=== PATIENT | male | born 1945 | race Caucasian/White ===

== ENCOUNTER 2016-04-08 09:56 | Inpatient (IN) | payer MEDICARE, OTHER ==
[2016-04-08] VITALS (34 sets, daily range): BP systolic 94–155; BP diastolic 30–98
[~2016-04-08] VITALS: Ht 185.4 cm; Wt 72.6 kg
[2016-04-08 10:37] LABS: Basophils # (auto) 0 uL; Basophils % (auto) 0.4 % (0.0-2.0); Eosinophils # (auto) 0.3 uL; Eosinophils % (auto) 5.4 % (0.0-7.0); Hematocrit 26.6 % (41.0-53.0); Hemoglobin 8.7 g/dL (13.5-17.5); Lymphocytes # (auto) 1.3 uL; Lymphocytes % (auto) 21.8 % (10.0-50.0); Mean Corpuscular Hemoglobin 31.3 pg (28.0-32.0); Mean Corpuscular Hgb Conc. 32.7 g/dL (32.0-36.0); Mean Corpuscular Volume 95.6 fL (80.0-100.0); Mean Platelet Volume 8.3 fL (7.4-10.4); Monocytes # (auto) 0.7 uL; Monocytes % (auto) 11.9 % (0.0-12.0); Neutrophils # (auto) 3.5 uL; Neutrophils % (auto) 60.5 % (37.0-80.0); Platelet Count (auto) 202 10^3/uL (140-450); Red Cell Distribution Width 14.4 % (11.6-16.0); White Blood Cell 5.8 10^3/uL (4.4-10.8)
[2016-04-08] MEDS ORDERED: FERROUS SULFATE 300 MG/5 ML ORAL LIQ PO ONE (10:45)
[2016-04-08] MEDS ORDERED: SODIUM CHLORIDE 0.9% 2,000 ML IV ONE (10:45)
[2016-04-08 10:58] LABS: Albumin 3.4 g/dL (3.4-5.0); BUN/Creatinine Ratio 5.1; Bilirubin, Total 0.6 mg/dL (0.2-1.0); Calcium 8.4 mg/dL (8.5-10.1); Potassium 5.2 mmol/L (3.5-5.1); Total Protein 6.7 g/dL (6.4-8.2)
[2016-04-08] MEDS: PROPOFOL 100 ML IV SCH (11:10)
[2016-04-08] MEDS ORDERED: PHENYLEPHRINE HCL 10 MG/ML VL IV ONE (11:16)
[2016-04-08] MEDS ORDERED: ceFAZolin 1GM/50ML D5W 50 ML IV ONE (11:16)
[2016-04-08] MEDS ORDERED: HEPARIN SODIUM (PORCINE) 5000 UNITS/ML 1ML VIAL ONE (11:20)
[2016-04-08] MEDS ORDERED: MIDAZOLAM HCL 1MG/1ML-2 ML VIAL ONE ×2 (11:21→11:57)
[2016-04-08] MEDS ORDERED: fentaNYL CITRATE 100 MCG/2 ML VL ONE ×2 (11:21→11:57)
[2016-04-08] MEDS ORDERED: fentaNYL CITRATE 5 ML ONE (11:21)
[2016-04-08] MEDS ORDERED: ETOMIDATE (2MG/ML) 20ML VIAL IV ONE (11:23)
[2016-04-08 11:26] LABS: Partial Thromboplastin Time 26.7 sec (22.64-33.71)
[2016-04-08 11:27] LABS: INR 1.28 (0.9-1.15); Prothrombin Time 13.2 sec (9.37-12.3)
[2016-04-08] MEDS ORDERED: ROCURONIUM 10MG/ML 10ML VIAL IV ONE (11:34)
[2016-04-08] MEDS ORDERED: MEPERIDINE HCL (50 MG/ML) 1 ML VIAL ONE (11:39)
[2016-04-08] MEDS ORDERED: DEXAMETHASONE SOD PHOS 10MG/1ML VIAL INJ ONE (11:46)
[2016-04-08] MEDS ORDERED: ONDANSETRON HCL 4 MG/2 ML VIAL IV ONE (12:30)
[2016-04-08] MEDS ORDERED: MORPHINE SULF INJ 2 MG/ML SYRINGE 1ML IV PRN ×3 (12:30→12:45)
[2016-04-08] MEDS ORDERED: LABETALOL HCL 5 MG/ML 4ML SYRINGE IV PRN (12:30)
[2016-04-08] MEDS ORDERED: HYDROmorphone HCL 2 MG/ML VL IV PRN (12:30)
[2016-04-08] MEDS ORDERED: ACCU-CHEK COMFORT CURVE STRIP VI ONE (12:30)
[2016-04-08] MEDS ORDERED: ePHEDrine SULFATE 50 MG/ML AMP IV PRN (12:30)
[2016-04-08] MEDS ORDERED: DEXTROSE (50%) 50ML SYRG IV ONE ×2 (12:45→15:15)
[2016-04-08] MEDS ORDERED: InsuLIN REG 1unit/0.01ml Soln (100units/ml) IV ONE ×2 (12:45→15:15)
[2016-04-08] MEDS ORDERED: NITROGLYCERIN 0.4 MG SL TAB SL PRN ×2 (12:45)
[2016-04-08] MEDS: MIDAZOLAM HCL 1MG/1ML-2 ML VIAL IV PRN ×2 (12:46→12:56)
[2016-04-08] MEDS ORDERED: EPOETIN ALFA 10,000 UNIT/1 ML VIAL SC ONE (13:00)
[2016-04-08] MEDS: MIDAZOLAM DRIP 100 mg/100mL NS 100 ML IV SCH (13:13)
[2016-04-08 13:58] LABS: Calcium 7.5 mg/dL (8.5-10.1)
[2016-04-08 14:07] LABS: Potassium 5.7 mmol/L (3.5-5.1)
[2016-04-08] MEDS ORDERED: SODIUM POLYSTYRENE SULF 15GM/60ML SUSP PR ONE (14:15)
[2016-04-08] MEDS ORDERED: SODIUM FERR GLUC 62.5MG/5ML 125 MG in SODIUM CHL 0.9% 100 ML IV ONE (14:15)
[2016-04-08] MEDS ORDERED: METOPROLOL TARTRATE 1MG/1ML-5ML VIAL IV PRN (14:15)
[2016-04-08] MEDS: SODIUM CHLOR 0.9% PF (SALINE LOCK) 10ML VIAL IV SCH ×2 (14:35→22:00)
[2016-04-08] MEDS ORDERED: ALBUTEROL SULF 2.5 MG/0.5ML(0.5%) NEB SOLN NEB ONE (15:15)
[2016-04-08] MEDS ORDERED: SODIUM BICARBONATE 50ML VIAL 50 ML in SOD CHL 0.45% 1,000 ML IV SCH (15:15)
[2016-04-08] MEDS: FAMOTIDINE (10MG/ML) 2ML VL IV SCH (15:20)
[2016-04-08] MEDS ORDERED: DEXTROSE 50% SYRINGE 50 ML IV ONE (15:21)
[2016-04-08] MEDS ORDERED: PROPOFOL 100 ML IV ONE (16:27)
[2016-04-08 18:42] LABS: BUN/Creatinine Ratio 5.4; Calcium 8.2 mg/dL (8.5-10.1); Potassium 4.6 mmol/L (3.5-5.1)
[2016-04-09] VITALS (104 sets, daily range): BP systolic 83–145; BP diastolic 31–109
[2016-04-09 04:02] LABS: Basophils # (auto) 0 uL; Basophils % (auto) 0.1 % (0.0-2.0); DEFINITIVE VIEW TRANSMISSION; Eosinophils # (auto) 0 uL; Eosinophils % (auto) 0.1 % (0.0-7.0); Hematocrit 17.5 % (41.0-53.0); Lymphocytes # (auto) 0.5 uL; Lymphocytes % (auto) 8.2 % (10.0-50.0); Mean Corpuscular Hemoglobin 31.4 pg (28.0-32.0); Mean Corpuscular Hgb Conc. 32.8 g/dL (32.0-36.0); Mean Corpuscular Volume 95.7 fL (80.0-100.0); Mean Platelet Volume 8.5 fL (7.4-10.4); Monocytes # (auto) 0.2 uL; Neutrophils # (auto) 5.3 uL; Neutrophils % (auto) 87.6 % (37.0-80.0); Platelet Count (auto) 135 10^3/uL (140-450); Red Cell Distribution Width 14.6 % (11.6-16.0)
[2016-04-09 04:05] LABS: Hemoglobin 5.8 g/dL (13.5-17.5)
[2016-04-09 04:17] LABS: Potassium 4.9 mmol/L (3.5-5.1)
[2016-04-09] MEDS: SODIUM CHLOR 0.9% PF (SALINE LOCK) 10ML VIAL IV SCH ×3 (06:03→21:33)
[2016-04-09 06:40] LABS: Basophils # (auto) 0 uL; Basophils % (auto) 0.2 % (0.0-2.0); DEFINITIVE VIEW TRANSMISSION; Eosinophils # (auto) 0 uL; Hematocrit 17.8 % (41.0-53.0); Lymphocytes # (auto) 0.6 uL; Mean Corpuscular Hemoglobin 31.8 pg (28.0-32.0); Mean Corpuscular Hgb Conc. 32.7 g/dL (32.0-36.0); Mean Corpuscular Volume 97.2 fL (80.0-100.0); Mean Platelet Volume 8.5 fL (7.4-10.4); Monocytes # (auto) 0.4 uL; Monocytes % (auto) 5.8 % (0.0-12.0); Neutrophils # (auto) 5.5 uL; Platelet Count (auto) 132 10^3/uL (140-450); Red Cell Distribution Width 14.6 % (11.6-16.0); White Blood Cell 6.5 10^3/uL (4.4-10.8)
[2016-04-09 06:44] LABS: Hemoglobin 5.8 g/dL (13.5-17.5)
[2016-04-09] MEDS ORDERED: SODIUM CHL 0.9% 1000 ML BAG XX ONE (08:00)
[2016-04-09] MEDS ORDERED: EPOETIN ALFA 10,000 UNIT/1 ML VIAL IV ONE (08:00)
[2016-04-09 09:46] LABS: INR 1.26 (0.9-1.15)
[2016-04-09] MEDS: MIDAZOLAM DRIP 100 mg/100mL NS 100 ML IV SCH ×2 (11:13→19:37)
[2016-04-09] MEDS: FAMOTIDINE (10MG/ML) 2ML VL IV SCH (11:13)
[2016-04-09] MEDS ORDERED: NOREPINEPHRINE BITARTRATE 250 ML IV SCH (11:29)
[2016-04-09] MEDS ORDERED: Novasource Renal 1 Liter GT SCH ×2 (12:00)
[2016-04-09] MEDS: SODIUM FERR GLUC 62.5MG/5ML 125 MG in SODIUM CHL 0.9% 100 ML IV SCH (12:22)
[2016-04-09] MEDS ORDERED: fentaNYL Drip 2500mCg/250mlNS 250 ML IV ONE (14:12)
[2016-04-09] MEDS ORDERED: fentaNYL Drip 2500mCg/250mlNS 250 ML IV SCH (14:12)
[2016-04-09] MEDS: PROPOFOL 100 ML IV SCH (16:40)
[2016-04-09] MEDS ORDERED: ACET-1158 PO (17:04)
[2016-04-09] MEDS ORDERED: ATO40T PO (17:04)
[2016-04-09] MEDS ORDERED: ATOR40TA52 PO (17:04)
[2016-04-09] MEDS ORDERED: GLIP2.5T28 PO (17:04)
[2016-04-09] MEDS ORDERED: MIRT30TA PO (17:04)
[2016-04-09] MEDS ORDERED: CALC667C PO (17:04)
[2016-04-09] MEDS ORDERED: SEVE800T8 PO (17:04)
[2016-04-09] MEDS ORDERED: DILT240C PO (17:04)
[2016-04-09] MEDS ORDERED: OMEP20CA5 PO (17:04)
[2016-04-09] MEDS ORDERED: HYDR-531 PO (17:04)
[2016-04-09] MEDS ORDERED: MINO2.5T2 PO (17:04)
[2016-04-09] MEDS ORDERED: FENT100D11 TD (19:42)
[2016-04-09] MEDS ORDERED: SODIUM BICARBONATE 50ML VIAL 50 ML in SOD CHL 0.45% 1,000 ML IV SCH (23:00)
[2016-04-10] VITALS (98 sets, daily range): BP systolic 107–199; BP diastolic 30–134
[2016-04-10] MEDS: PANTOPRAZOLE SODIUM 40 MG/10 ML VIAL IV SCH (00:30)
[2016-04-10] MEDS: MIDAZOLAM DRIP 100 mg/100mL NS 100 ML IV SCH ×2 (02:52→10:28)
[2016-04-10 04:12] LABS: BUN/Creatinine Ratio 6.6; Calcium 7.3 mg/dL (8.5-10.1); Potassium 4.5 mmol/L (3.5-5.1)
[2016-04-10 04:40] LABS: Basophils # (auto) 0 uL; Basophils % (auto) 0.3 % (0.0-2.0); DEFINITIVE VIEW TRANSMISSION; Eosinophils # (auto) 0 uL; Eosinophils % (auto) 0.4 % (0.0-7.0); Hematocrit 17.5 % (41.0-53.0); Lymphocytes % (auto) 12.7 % (10.0-50.0); Mean Corpuscular Hemoglobin 32.1 pg (28.0-32.0); Mean Corpuscular Hgb Conc. 34.1 g/dL (32.0-36.0); Mean Corpuscular Volume 94.1 fL (80.0-100.0); Mean Platelet Volume 8.9 fL (7.4-10.4); Monocytes # (auto) 0.7 uL; Monocytes % (auto) 8.8 % (0.0-12.0); Neutrophils # (auto) 6.3 uL; Neutrophils % (auto) 77.8 % (37.0-80.0); Platelet Count (auto) 144 10^3/uL (140-450); Red Cell Distribution Width 15.2 % (11.6-16.0); White Blood Cell 8.2 10^3/uL (4.4-10.8)
[2016-04-10] MEDS: SODIUM CHLOR 0.9% PF (SALINE LOCK) 10ML VIAL IV SCH ×3 (06:48→22:00)
[2016-04-10] MEDS: SODIUM FERR GLUC 62.5MG/5ML 125 MG in SODIUM CHL 0.9% 100 ML IV SCH (10:00)
[2016-04-10] MEDS: FAMOTIDINE (10MG/ML) 2ML VL IV SCH (10:26)
[2016-04-10] MEDS ORDERED: METOPROLOL TARTRATE 1MG/1ML-5ML VIAL IV PRN (12:00)
[2016-04-10] MEDS ORDERED: NITROGLYCERIN 0.4 MG SL TAB SL PRN (12:00)
[2016-04-10] MEDS ORDERED: MIDAZOLAM DRIP 100 mg/100mL NS 100 ML IV SCH (12:41)
[2016-04-10] MEDS ORDERED: fentaNYL Drip 2500mCg/250mlNS 250 ML IV SCH (14:12)
[2016-04-10] MEDS ORDERED: fentaNYL 50MCG/HR 50 MCG/HR PAT TD SCH (15:30)
[2016-04-10] MEDS ORDERED: PROPOFOL 100 ML IV SCH (16:40)
[2016-04-10] MEDS ORDERED: DEXTROSE (50%) 50ML SYRG IV PRN (17:45)
[2016-04-10] MEDS: InsuLIN REG 1unit/0.01ml Soln (100units/ml) SC SCH (18:00)
[2016-04-10] MEDS ORDERED: InsuLIN REG 1unit/0.01ml Soln (100units/ml) SC SCH (18:00)
[2016-04-10] MEDS ORDERED: ACCU-CHEK COMFORT CURVE STRIP VI SCH (18:00)
[2016-04-10] MEDS: ACCU-CHEK COMFORT CURVE STRIP VI SCH (18:00)
[2016-04-10] MEDS: MORPHINE SULF INJ 2 MG/ML SYRINGE 1ML IV PRN (18:03)
[2016-04-10] MEDS ORDERED: HYDROmorphone HCL 2 MG/ML VL ONE (19:25)
[2016-04-10] MEDS ORDERED: HYDROmorphone HCL 2 MG/ML VL IV ONE (19:40)
[2016-04-10] MEDS ORDERED: SODIUM BICARBONATE 50ML VIAL 50 ML in SOD CHL 0.45% 1,000 ML IV SCH (23:00)
[2016-04-11] VITALS (81 sets, daily range): BP systolic 118–186; BP diastolic 57–117
[2016-04-11] MEDS: MORPHINE SULF INJ 2 MG/ML SYRINGE 1ML IV PRN (01:18)
[2016-04-11] MEDS: HALOPERIDOL LACTATE 5 MG/ML INJ VIAL IV PRN (01:22)
[2016-04-11 04:07] LABS: Basophils # (auto) 0 uL; Basophils % (auto) 0.2 % (0.0-2.0); DEFINITIVE VIEW TRANSMISSION; Eosinophils # (auto) 0 uL; Eosinophils % (auto) 0.5 % (0.0-7.0); Hematocrit 17.5 % (41.0-53.0); Lymphocytes % (auto) 10.8 % (10.0-50.0); Mean Corpuscular Hemoglobin 32.2 pg (28.0-32.0); Mean Corpuscular Hgb Conc. 33.7 g/dL (32.0-36.0); Mean Corpuscular Volume 95.7 fL (80.0-100.0); Mean Platelet Volume 8.3 fL (7.4-10.4); Monocytes # (auto) 0.8 uL; Monocytes % (auto) 8.4 % (0.0-12.0); Neutrophils # (auto) 7.4 uL; Neutrophils % (auto) 80.1 % (37.0-80.0); Platelet Count (auto) 151 10^3/uL (140-450); Red Cell Distribution Width 14.7 % (11.6-16.0); White Blood Cell 9.2 10^3/uL (4.4-10.8)
[2016-04-11 04:08] LABS: BUN/Creatinine Ratio 7.2; Calcium 7.7 mg/dL (8.5-10.1); Potassium 3.7 mmol/L (3.5-5.1)
[2016-04-11 04:21] LABS: Hemoglobin 5.9 g/dL (13.5-17.5)
[2016-04-11] MEDS: InsuLIN REG 1unit/0.01ml Soln (100units/ml) SC SCH ×4 (06:00→18:43)
[2016-04-11] MEDS: ACCU-CHEK COMFORT CURVE STRIP VI SCH ×4 (06:00→18:01)
[2016-04-11] MEDS ORDERED: SODIUM CHL 0.9% 1000 ML BAG XX ONE (08:00)
[2016-04-11] MEDS ORDERED: DILTIAZEM HCL 60 MG TAB GT ONE (10:00)
[2016-04-11] MEDS: SODIUM CHLOR 0.9% PF (SALINE LOCK) 10ML VIAL IV SCH ×3 (10:04→21:08)
[2016-04-11] MEDS: MINOXIDIL 2.5 MG TAB PO SCH (10:05)
[2016-04-11] MEDS: PANTOPRAZOLE SODIUM 40 MG/10 ML VIAL IV SCH ×2 (10:05→21:08)
[2016-04-11] MEDS: FAMOTIDINE (10MG/ML) 2ML VL IV SCH (10:05)
[2016-04-11] MEDS: LORazepam 2MG/ML-1ML VIAL IV PRN ×2 (10:06→20:18)
[2016-04-11] MEDS ORDERED: NOREPINEPHRINE BITARTRATE 250 ML IV SCH (11:29)
[2016-04-11] MEDS: SODIUM FERR GLUC 62.5MG/5ML 125 MG in SODIUM CHL 0.9% 100 ML IV SCH (11:39)
[2016-04-11] MEDS ORDERED: ALBUTEROL SULF 2.5 MG/0.5ML(0.5%) NEB SOLN NEB PRN (13:30)
[2016-04-11] MEDS ORDERED: IPRATROPIUM BROM 0.5 MG/2.5ML INH SOL NEB PRN (13:30)
[2016-04-11] MEDS ORDERED: BUDESONIDE (INHALATION) 0.5 MG/2 ML NEB NEB ONE (13:30)
[2016-04-11] MEDS ORDERED: ALBUTEROL SULF 2.5 MG/0.5ML(0.5%) NEB SOLN NEB ONE (13:30)
[2016-04-11] MEDS ORDERED: IPRATROPIUM BROM 0.5 MG/2.5ML INH SOL NEB ONE (13:30)
[2016-04-11] MEDS ORDERED: FUROSEMIDE 40 MG/4 ML VIAL ONE (14:52)
[2016-04-11] MEDS ORDERED: FUROSEMIDE 40 MG/4 ML VIAL IV ONE (15:00)
[2016-04-11] MEDS ORDERED: METOPROLOL TARTRATE 1MG/1ML-5ML VIAL IV ONE ×2 (15:45→15:53)
[2016-04-11] MEDS ORDERED: LABETALOL HCL 5 MG/ML 4ML SYRINGE IV ONE ×2 (17:45→17:47)
[2016-04-11] MEDS: DILTIAZEM HCL 60 MG TAB GT SCH (18:06)
[2016-04-11] MEDS: FUROSEMIDE 40 MG/4 ML VIAL IV SCH (19:27)
[2016-04-11] MEDS ORDERED: MIRTAZAPINE 30 MG TAB PO SCH (22:00)
[2016-04-12] VITALS (33 sets, daily range): BP systolic 124–184; BP diastolic 59–112
[2016-04-12] MEDS: HYDROmorphone HCL 2 MG/ML VL IV PRN ×2 (01:15→23:28)
[2016-04-12] MEDS: DILTIAZEM HCL 60 MG TAB GT SCH ×2 (05:05)
[2016-04-12] MEDS: SODIUM CHLOR 0.9% PF (SALINE LOCK) 10ML VIAL IV SCH ×3 (05:05→22:33)
[2016-04-12] MEDS: FUROSEMIDE 40 MG/4 ML VIAL IV SCH ×2 (05:05→18:25)
[2016-04-12] MEDS: InsuLIN REG 1unit/0.01ml Soln (100units/ml) SC SCH ×4 (05:06→18:00)
[2016-04-12] MEDS: ACCU-CHEK COMFORT CURVE STRIP VI SCH ×4 (05:13→18:25)
[2016-04-12] MEDS: LORazepam 2MG/ML-1ML VIAL IV PRN (10:46)
[2016-04-12] MEDS: SODIUM FERR GLUC 62.5MG/5ML 125 MG in SODIUM CHL 0.9% 100 ML IV SCH (11:28)
[2016-04-12] MEDS: MINOXIDIL 2.5 MG TAB PO SCH (11:30)
[2016-04-12] MEDS: PANTOPRAZOLE SODIUM 40 MG/10 ML VIAL IV SCH ×2 (11:30→22:00)
[2016-04-12] MEDS: FAMOTIDINE (10MG/ML) 2ML VL IV SCH (11:30)
[2016-04-12 12:02] LABS: BUN/Creatinine Ratio 7.1; Calcium 8.4 mg/dL (8.5-10.1); Potassium 3.6 mmol/L (3.5-5.1)
[2016-04-12] MEDS ORDERED: PHYTONADIONE (VIT K)10 MG/ML 1ML VIAL SUBCUT ONE (18:15)
[2016-04-12] MEDS: LABETALOL HCL 5 MG/ML 4ML SYRINGE IV PRN (20:27)
[2016-04-12] MEDS: HALOPERIDOL LACTATE 5 MG/ML INJ VIAL IV PRN (22:00)
[2016-04-13] VITALS (8 sets, daily range): BP systolic 112–176; BP diastolic 53–114
[2016-04-13] MEDS: LORazepam 2MG/ML-1ML VIAL IV PRN ×2 (00:52→12:39)
[2016-04-13] MEDS: ACCU-CHEK COMFORT CURVE STRIP VI SCH ×5 (01:23→23:58)
[2016-04-13] MEDS: SODIUM CHLOR 0.9% PF (SALINE LOCK) 10ML VIAL IV SCH ×3 (05:44→21:39)
[2016-04-13] MEDS: InsuLIN REG 1unit/0.01ml Soln (100units/ml) SC SCH ×4 (05:44→18:00)
[2016-04-13 06:15] LABS: Basophils # (auto) 0 uL; Basophils % (auto) 0.2 % (0.0-2.0); DEFINITIVE VIEW TRANSMISSION; Eosinophils # (auto) 0.1 uL; Eosinophils % (auto) 0.8 % (0.0-7.0); Hematocrit 20.9 % (41.0-53.0); Lymphocytes # (auto) 0.8 uL; Lymphocytes % (auto) 8.3 % (10.0-50.0); Mean Corpuscular Hemoglobin 31.4 pg (28.0-32.0); Mean Corpuscular Hgb Conc. 32.3 g/dL (32.0-36.0); Mean Corpuscular Volume 97.2 fL (80.0-100.0); Mean Platelet Volume 8.5 fL (7.4-10.4); Monocytes # (auto) 0.7 uL; Monocytes % (auto) 7.3 % (0.0-12.0); Neutrophils # (auto) 7.8 uL; Neutrophils % (auto) 83.4 % (37.0-80.0); Platelet Count (auto) 197 10^3/uL (140-450); Red Cell Distribution Width 15.2 % (11.6-16.0); White Blood Cell 9.3 10^3/uL (4.4-10.8)
[2016-04-13] MEDS: FUROSEMIDE 40 MG/4 ML VIAL IV SCH (06:17)
[2016-04-13 06:23] LABS: Hemoglobin 6.8 g/dL (13.5-17.5)
[2016-04-13 06:56] LABS: Albumin 3.3 g/dL (3.4-5.0); BUN/Creatinine Ratio 7.9; Bilirubin, Total 0.6 mg/dL (0.2-1.0); Calcium 8.7 mg/dL (8.5-10.1); Phosphorus 8.2 mg/dL (2.6-4.90); Potassium 4.1 mmol/L (3.5-5.1); Total Protein 6.4 g/dL (6.4-8.2)
[2016-04-13] MEDS ORDERED: cloNIDine 0.2 MG/24 HR PAT TD SCH (08:15)
[2016-04-13] MEDS ORDERED: DILTIAZEM HCL 25 MG/5 ML VIAL IV ONE (08:15)
[2016-04-13] MEDS ORDERED: PPN PER PHARMACY 0 ML IV SCH (08:15)
[2016-04-13 09:16] LABS: Magnesium 2.8 mg/dL (1.6-2.6)
[2016-04-13] MEDS: SOD CHL 0.45% 1,000 ML IV SCH (09:37)
[2016-04-13] MEDS: PHYTONADIONE (VIT K)10 MG/ML 1ML VIAL SUBCUT SCH (09:39)
[2016-04-13] MEDS: FAMOTIDINE (10MG/ML) 2ML VL IV SCH (09:39)
[2016-04-13] MEDS: PANTOPRAZOLE SODIUM 40 MG/10 ML VIAL IV SCH ×2 (09:39→21:37)
[2016-04-13] MEDS ORDERED: SODIUM CHL 0.9% 1000 ML BAG XX ONE (10:30)
[2016-04-13] MEDS ORDERED: EPOETIN ALFA 10,000 UNIT/1 ML VIAL IV ONE (10:30)
[2016-04-13] MEDS: SODIUM FERR GLUC 62.5MG/5ML 125 MG in SODIUM CHL 0.9% 100 ML IV SCH (11:30)
[2016-04-13] MEDS: LABETALOL HCL 5 MG/ML 4ML SYRINGE IV PRN ×2 (15:58→21:36)
[2016-04-13] MEDS: HYDROmorphone HCL 2 MG/ML VL IV PRN (17:10)
[2016-04-13] MEDS ORDERED: PPN PER PHARMACY IV NR ×7 (20:00)
[2016-04-14] MEDS: HYDROmorphone HCL 2 MG/ML VL IV PRN ×2 (00:17→10:06)
[2016-04-14] MEDS: LORazepam 2MG/ML-1ML VIAL IV PRN (02:14)
[2016-04-14] MEDS: ACCU-CHEK COMFORT CURVE STRIP VI SCH ×3 (05:25→18:08)
[2016-04-14] MEDS: SODIUM CHLOR 0.9% PF (SALINE LOCK) 10ML VIAL IV SCH ×3 (05:25→22:09)
[2016-04-14 05:27] LABS: Basophils # (auto) 0 uL; DEFINITIVE VIEW TRANSMISSION; Eosinophils # (auto) 0 uL; Lymphocytes # (auto) 1.1 uL; Monocytes # (auto) 1.1 uL; Monocytes % (auto) 10.2 % (0.0-12.0); Red Cell Distribution Width 15.6 % (11.6-16.0)
[2016-04-14] MEDS: InsuLIN REG 1unit/0.01ml Soln (100units/ml) SC SCH ×4 (05:31→18:09)
[2016-04-14 05:35] LABS: Albumin 3.3 g/dL (3.4-5.0); Calcium 8.9 mg/dL (8.5-10.1); Magnesium 2.9 mg/dL (1.6-2.6); Potassium 4.3 mmol/L (3.5-5.1)
[2016-04-14 05:37] LABS: Basophils % (auto) 0.1 % (0.0-2.0); Eosinophils % (auto) 0.3 % (0.0-7.0); Lymphocytes % (auto) 10.7 % (10.0-50.0); Mean Corpuscular Hgb Conc. 32.9 g/dL (32.0-36.0); Mean Corpuscular Volume 97.3 fL (80.0-100.0); Mean Platelet Volume 8.6 fL (7.4-10.4); Neutrophils # (auto) 8.2 uL; Neutrophils % (auto) 78.7 % (37.0-80.0); Platelet Count (auto) 231 10^3/uL (140-450); White Blood Cell 10.4 10^3/uL (4.4-10.8)
[2016-04-14 05:40] LABS: Hemoglobin 6.9 g/dL (13.5-17.5)
[2016-04-14 05:44] LABS: Bilirubin, Total 0.6 mg/dL (0.2-1.0); Total Protein 6.6 g/dL (6.4-8.2)
[2016-04-14] MEDS: SOD CHL 0.45% 1,000 ML IV SCH (06:00)
[2016-04-14 06:09] LABS: Phosphorus 7.9 mg/dL (2.6-4.90)
[2016-04-14 08:00] VITALS: BP 154/93
[2016-04-14] MEDS: TPN PER PHARMACY 0 ML IV SCH (09:00)
[2016-04-14] MEDS: PHYTONADIONE (VIT K)10 MG/ML 1ML VIAL SUBCUT SCH (09:41)
[2016-04-14] MEDS: PANTOPRAZOLE SODIUM 40 MG/10 ML VIAL IV SCH ×2 (09:41→22:09)
[2016-04-14 12:00] VITALS: BP 162/105
[2016-04-14] MEDS ORDERED: EPOETIN ALFA 10,000 UNIT/1 ML VIAL IV ONE (12:45)
[2016-04-14] MEDS: FAMOTIDINE (10MG/ML) 2ML VL IV SCH (15:11)
[2016-04-14] MEDS: SODIUM FERR GLUC 62.5MG/5ML 125 MG in SODIUM CHL 0.9% 100 ML IV SCH (15:24)
[2016-04-14 16:00] VITALS: BP 155/101
[2016-04-14 18:16] VITALS: BP 155/101
[2016-04-14 19:42] LABS: Cholesterol 152 mg/dL (<200); HDL Cholesterol 47 mg/dL (40-59); LDL Cholesterol 89 mg/dL (<100); Triglycerides 130 mg/dL (<150)
[2016-04-14 19:57] LABS: Vitamin B12 1456 pg/mL (211-911)
[2016-04-14 20:00] VITALS: BP 146/90
[2016-04-14] MEDS ORDERED: TPN PER PHARMACY IV NR ×8 (20:00)
[2016-04-14 20:35] LABS: Temperature: 21.9 C (20.0-25.0)
[2016-04-14] MEDS: ATORVASTATIN 20 MG TAB PO SCH (22:00)
[2016-04-15] VITALS: BP 136/78
[2016-04-15] MEDS: ACCU-CHEK COMFORT CURVE STRIP VI SCH ×5 (00:01→23:51)
[2016-04-15] MEDS: InsuLIN REG 1unit/0.01ml Soln (100units/ml) SC SCH ×4 (00:15→17:55)
[2016-04-15] MEDS: SOD CHL 0.45% 1,000 ML IV SCH (00:34)
[2016-04-15 04:00] VITALS: BP 158/72
[2016-04-15 05:41] LABS: Basophils # (auto) 0 uL; Basophils % (auto) 0.2 % (0.0-2.0); DEFINITIVE VIEW TRANSMISSION; Eosinophils # (auto) 0.3 uL; Eosinophils % (auto) 2.9 % (0.0-7.0); Hemoglobin 7.4 g/dL (13.5-17.5); Lymphocytes # (auto) 1.4 uL; Lymphocytes % (auto) 12.9 % (10.0-50.0); Mean Corpuscular Hemoglobin 32.5 pg (28.0-32.0); Mean Corpuscular Hgb Conc. 33.3 g/dL (32.0-36.0); Mean Corpuscular Volume 97.6 fL (80.0-100.0); Mean Platelet Volume 8.6 fL (7.4-10.4); Monocytes # (auto) 1.2 uL; Monocytes % (auto) 11.1 % (0.0-12.0); Neutrophils # (auto) 7.8 uL; Neutrophils % (auto) 72.9 % (37.0-80.0); Platelet Count (auto) 217 10^3/uL (140-450); Red Cell Distribution Width 16.5 % (11.6-16.0); White Blood Cell 10.7 10^3/uL (4.4-10.8)
[2016-04-15 06:03] LABS: BUN/Creatinine Ratio 8.9; Calcium 8.9 mg/dL (8.5-10.1); Potassium 3.7 mmol/L (3.5-5.1)
[2016-04-15] MEDS: SODIUM CHLOR 0.9% PF (SALINE LOCK) 10ML VIAL IV SCH ×3 (06:27→21:24)
[2016-04-15 08:00] VITALS: BP 154/76
[2016-04-15 08:29] LABS: Magnesium 2.4 mg/dL (1.6-2.6)
[2016-04-15] MEDS: TPN PER PHARMACY 0 ML IV SCH (09:00)
[2016-04-15] MEDS: PANTOPRAZOLE SODIUM 40 MG/10 ML VIAL IV SCH ×2 (10:52→21:27)
[2016-04-15] MEDS: FAMOTIDINE (10MG/ML) 2ML VL IV SCH (10:52)
[2016-04-15] MEDS: PHYTONADIONE (VIT K)10 MG/ML 1ML VIAL SUBCUT SCH (10:53)
[2016-04-15 12:00] VITALS: BP 127/84
[2016-04-15] MEDS: METOPROLOL TARTRATE 1MG/1ML-5ML VIAL IV SCH ×2 (14:20→18:06)
[2016-04-15] MEDS: SODIUM FERR GLUC 62.5MG/5ML 125 MG in SODIUM CHL 0.9% 100 ML IV SCH (15:06)
[2016-04-15 16:00] VITALS: BP 159/70
[2016-04-15 20:00] VITALS: BP 167/60
[2016-04-15] MEDS ORDERED: SOD CHL 0.45% 1,000 ML IV SCH (20:00)
[2016-04-15] MEDS ORDERED: TPN PER PHARMACY IV NR ×8 (20:00)
[2016-04-15] MEDS: ATORVASTATIN 20 MG TAB PO SCH (21:24)
[2016-04-16] VITALS: BP 126/54
[2016-04-16] MEDS: METOPROLOL TARTRATE 1MG/1ML-5ML VIAL IV SCH ×5 (00:06→23:40)
[2016-04-16] MEDS: InsuLIN REG 1unit/0.01ml Soln (100units/ml) SC SCH ×4 (00:12→18:00)
[2016-04-16 04:00] VITALS: BP 151/89
[2016-04-16] MEDS: SODIUM CHLOR 0.9% PF (SALINE LOCK) 10ML VIAL IV SCH ×3 (05:13→22:18)
[2016-04-16] MEDS: ACCU-CHEK COMFORT CURVE STRIP VI SCH ×4 (05:47→23:40)
[2016-04-16 06:50] LABS: BUN/Creatinine Ratio 9.6; Bilirubin, Total 0.8 mg/dL (0.2-1.0); Calcium 8.7 mg/dL (8.5-10.1); Magnesium 2.4 mg/dL (1.6-2.6); Phosphorus 4.6 mg/dL (2.6-4.90); Potassium 3.7 mmol/L (3.5-5.1); Total Protein 6.1 g/dL (6.4-8.2)
[2016-04-16 08:00] VITALS: BP 154/87
[2016-04-16 08:05] LABS: Hematocrit 25.5 % (41.0-53.0); Hemoglobin 8.3 g/dL (13.5-17.5)
[2016-04-16] MEDS: TPN PER PHARMACY 0 ML IV SCH (09:00)
[2016-04-16] MEDS ORDERED: SODIUM CHL 0.9% 1000 ML BAG XX ONE (11:00)
[2016-04-16] MEDS ORDERED: EPOETIN ALFA 10,000 UNIT/1 ML VIAL IV ONE (11:00)
[2016-04-16 12:00] VITALS: BP 103/54
[2016-04-16] MEDS: FAMOTIDINE (10MG/ML) 2ML VL IV SCH (12:29)
[2016-04-16] MEDS: PANTOPRAZOLE SODIUM 40 MG/10 ML VIAL IV SCH ×2 (12:29→22:18)
[2016-04-16] MEDS: SODIUM FERR GLUC 62.5MG/5ML 125 MG in SODIUM CHL 0.9% 100 ML IV SCH (17:09)
[2016-04-16] MEDS ORDERED: TPN PER PHARMACY IV NR ×9 (20:00)
[2016-04-16 22:00] VITALS: BP 110/64
[2016-04-16] MEDS: ATORVASTATIN 20 MG TAB PO SCH (22:00)
[2016-04-17] VITALS (7 sets, daily range): BP systolic 112–138; BP diastolic 59–85
[2016-04-17] MEDS: InsuLIN REG 1unit/0.01ml Soln (100units/ml) SC SCH ×5 (00:22→23:55)
[2016-04-17] MEDS: METOPROLOL TARTRATE 1MG/1ML-5ML VIAL IV SCH ×4 (05:35→23:55)
[2016-04-17] MEDS: SODIUM CHLOR 0.9% PF (SALINE LOCK) 10ML VIAL IV SCH ×2 (05:36→22:00)
[2016-04-17] MEDS: ACCU-CHEK COMFORT CURVE STRIP VI SCH ×4 (05:36→23:56)
[2016-04-17 06:20] LABS: Albumin 2.9 g/dL (3.4-5.0); BUN/Creatinine Ratio 9.2; Bilirubin, Total 0.6 mg/dL (0.2-1.0); Magnesium 2.3 mg/dL (1.6-2.6); Phosphorus 4.5 mg/dL (2.6-4.90); Potassium 4.1 mmol/L (3.5-5.1)
[2016-04-17] MEDS: PANTOPRAZOLE SODIUM 40 MG/10 ML VIAL IV SCH ×2 (10:53→21:22)
[2016-04-17] MEDS: FAMOTIDINE (10MG/ML) 2ML VL IV SCH (10:53)
[2016-04-17] MEDS ORDERED: SODIUM CHL 0.9% 1000 ML BAG XX ONE (14:00)
[2016-04-17] MEDS ORDERED: EPOETIN ALFA 10,000 UNIT/1 ML VIAL IV ONE (14:00)
[2016-04-17 14:20] LABS: BUN/Creatinine Ratio 9.4; Calcium 8.6 mg/dL (8.5-10.1)
[2016-04-17] MEDS: SODIUM FERR GLUC 62.5MG/5ML 125 MG in SODIUM CHL 0.9% 100 ML IV SCH (16:57)
[2016-04-17 18:06] LABS: Vitamin D 25-Hydroxy 44 ng/mL (.); Vitamin D-2 25-Hydroxy <1.0 ng/mL (.)
[2016-04-17] MEDS ORDERED: TPN PER PHARMACY IV NR ×9 (20:00)
[2016-04-17] MEDS: ATORVASTATIN 20 MG TAB PO SCH (21:23)
[2016-04-18 05:20] VITALS: BP 134/79
[2016-04-18] MEDS: ACCU-CHEK COMFORT CURVE STRIP VI SCH ×3 (05:32→18:08)
[2016-04-18] MEDS: SODIUM CHLOR 0.9% PF (SALINE LOCK) 10ML VIAL IV SCH ×3 (05:32→22:08)
[2016-04-18] MEDS: METOPROLOL TARTRATE 1MG/1ML-5ML VIAL IV SCH ×4 (05:32→23:55)
[2016-04-18] MEDS: InsuLIN REG 1unit/0.01ml Soln (100units/ml) SC SCH ×3 (05:33→18:00)
[2016-04-18 06:00] LABS: Basophils # (auto) 0 uL; Basophils % (auto) 0.3 % (0.0-2.0); DEFINITIVE VIEW TRANSMISSION; Eosinophils # (auto) 0.3 uL; Eosinophils % (auto) 3.1 % (0.0-7.0); Hematocrit 26.7 % (41.0-53.0); Hemoglobin 8.7 g/dL (13.5-17.5); Lymphocytes # (auto) 1.5 uL; Lymphocytes % (auto) 13.7 % (10.0-50.0); Mean Corpuscular Hemoglobin 32.6 pg (28.0-32.0); Mean Corpuscular Hgb Conc. 32.7 g/dL (32.0-36.0); Mean Corpuscular Volume 99.9 fL (80.0-100.0); Mean Platelet Volume 9.4 fL (7.4-10.4); Monocytes % (auto) 8.9 % (0.0-12.0); Neutrophils # (auto) 8.2 uL; Platelet Count (auto) 233 10^3/uL (140-450); Red Cell Distribution Width 19.9 % (11.6-16.0)
[2016-04-18 09:00] VITALS: BP 104/74
[2016-04-18] MEDS: PANTOPRAZOLE SODIUM 40 MG/10 ML VIAL IV SCH ×2 (11:46→22:08)
[2016-04-18] MEDS: FAMOTIDINE (10MG/ML) 2ML VL IV SCH (11:46)
[2016-04-18 12:12] VITALS: BP 115/62
[2016-04-18 13:00] VITALS: BP 118/67
[2016-04-18] MEDS: SODIUM FERR GLUC 62.5MG/5ML 125 MG in SODIUM CHL 0.9% 100 ML IV SCH (15:00)
[2016-04-18 17:00] VITALS: BP 130/71
[2016-04-18 22:00] VITALS: BP 127/79
[2016-04-18] MEDS: ATORVASTATIN 20 MG TAB PO SCH (22:08)
[2016-04-19] MEDS: ACCU-CHEK COMFORT CURVE STRIP VI SCH ×4 (00:06→18:00)
[2016-04-19] MEDS: InsuLIN REG 1unit/0.01ml Soln (100units/ml) SC SCH ×4 (00:11→18:00)
[2016-04-19 05:11] VITALS: BP 116/70
[2016-04-19] MEDS: METOPROLOL TARTRATE 1MG/1ML-5ML VIAL IV SCH ×3 (05:30→18:00)
[2016-04-19] MEDS: SODIUM CHLOR 0.9% PF (SALINE LOCK) 10ML VIAL IV SCH ×3 (06:03→22:03)
[2016-04-19 09:10] VITALS: BP 166/73
[2016-04-19] MEDS ORDERED: metroNIDAZOLE 500 MG TAB PO SCH (10:15)
[2016-04-19] MEDS: FAMOTIDINE (10MG/ML) 2ML VL IV SCH (10:54)
[2016-04-19] MEDS: metroNIDAZOLE 500 MG TAB PO SCH ×3 (10:54→22:04)
[2016-04-19] MEDS: PANTOPRAZOLE SODIUM 40 MG/10 ML VIAL IV SCH ×2 (10:54→22:03)
[2016-04-19 11:34] VITALS: BP 109/65
[2016-04-19 16:23] VITALS: BP 115/54
[2016-04-19 21:00] VITALS: BP 128/73
[2016-04-19 22:00] VITALS: BP 128/73
[2016-04-19] MEDS: ATORVASTATIN 20 MG TAB PO SCH (22:03)
[2016-04-20] VITALS (7 sets, daily range): BP systolic 125–158; BP diastolic 72–92
[2016-04-20] MEDS: METOPROLOL TARTRATE 1MG/1ML-5ML VIAL IV SCH ×5 (00:04→23:48)
[2016-04-20] MEDS: ACCU-CHEK COMFORT CURVE STRIP VI SCH ×5 (00:04→23:48)
[2016-04-20] MEDS: metroNIDAZOLE 500 MG TAB PO SCH ×3 (06:10→22:21)
[2016-04-20] MEDS: SODIUM CHLOR 0.9% PF (SALINE LOCK) 10ML VIAL IV SCH ×3 (06:10→22:21)
[2016-04-20] MEDS: InsuLIN REG 1unit/0.01ml Soln (100units/ml) SC SCH ×5 (06:11→23:48)
[2016-04-20 06:25] LABS: BUN/Creatinine Ratio 8.6; Calcium 8.6 mg/dL (8.5-10.1); Potassium 4.2 mmol/L (3.5-5.1)
[2016-04-20] MEDS: PANTOPRAZOLE SODIUM 40 MG/10 ML VIAL IV SCH ×2 (10:31→22:21)
[2016-04-20] MEDS: FAMOTIDINE (10MG/ML) 2ML VL IV SCH (10:32)
[2016-04-20] MEDS ORDERED: SODIUM CHL 0.9% 1000 ML BAG XX ONE (14:30)
[2016-04-20] MEDS ORDERED: EPOETIN ALFA 10,000 UNIT/1 ML VIAL IV ONE (14:30)
[2016-04-20] MEDS: ATORVASTATIN 20 MG TAB PO SCH (22:22)
[2016-04-21] VITALS (8 sets, daily range): BP systolic 122–143; BP diastolic 64–86
[2016-04-21] MEDS: InsuLIN REG 1unit/0.01ml Soln (100units/ml) SC SCH ×3 (06:00→18:21)
[2016-04-21] MEDS: SODIUM CHLOR 0.9% PF (SALINE LOCK) 10ML VIAL IV SCH ×3 (06:11→23:30)
[2016-04-21] MEDS: METOPROLOL TARTRATE 1MG/1ML-5ML VIAL IV SCH ×3 (06:11→18:25)
[2016-04-21 06:12] LABS: Potassium 4.1 mmol/L (3.5-5.1)
[2016-04-21] MEDS: ACCU-CHEK COMFORT CURVE STRIP VI SCH ×3 (06:12→18:00)
[2016-04-21] MEDS: metroNIDAZOLE 500 MG TAB PO SCH ×3 (06:12→23:31)
[2016-04-21 06:16] LABS: BUN/Creatinine Ratio 7.4; Calcium 8.7 mg/dL (8.5-10.1)
[2016-04-21 06:29] LABS: Basophils # (auto) 0 uL; Basophils % (auto) 0.3 % (0.0-2.0); DEFINITIVE VIEW TRANSMISSION; Eosinophils # (auto) 0.2 uL; Eosinophils % (auto) 1.9 % (0.0-7.0); Hemoglobin 10.4 g/dL (13.5-17.5); Lymphocytes # (auto) 1.4 uL; Lymphocytes % (auto) 12.2 % (10.0-50.0); Mean Corpuscular Hemoglobin 33.2 pg (28.0-32.0); Mean Corpuscular Hgb Conc. 33.5 g/dL (32.0-36.0); Mean Corpuscular Volume 99.1 fL (80.0-100.0); Mean Platelet Volume 9.3 fL (7.4-10.4); Monocytes % (auto) 8.8 % (0.0-12.0); Neutrophils # (auto) 8.8 uL; Neutrophils % (auto) 76.8 % (37.0-80.0); Platelet Count (auto) 256 10^3/uL (140-450); Red Cell Distribution Width 19.6 % (11.6-16.0); SUSPECT VIEW TRANSMISSION; White Blood Cell 11.5 10^3/uL (4.4-10.8)
[2016-04-21] MEDS: PANTOPRAZOLE SODIUM 40 MG/10 ML VIAL IV SCH ×2 (09:54→23:30)
[2016-04-21] MEDS: FAMOTIDINE (10MG/ML) 2ML VL IV SCH (09:54)
[2016-04-21] MEDS ORDERED: EPOETIN ALFA 3,000 UNIT/1 ML VIAL IV ONE ×2 (12:15→12:30)
[2016-04-21] MEDS ORDERED: EPOETIN ALFA 2,000 UNIT/1 ML VIAL IV ONE (12:30)
[2016-04-21] MEDS: HYDROcodone-ACET 7.5/325MG TAB PO PRN (20:54)
[2016-04-21] MEDS: ATORVASTATIN 20 MG TAB PO SCH (23:31)
[2016-04-22 05:00] VITALS: BP 153/88
[2016-04-22] MEDS: METOPROLOL TARTRATE 1MG/1ML-5ML VIAL IV SCH ×4 (05:59→16:10)
[2016-04-22] MEDS: SODIUM CHLOR 0.9% PF (SALINE LOCK) 10ML VIAL IV SCH ×2 (05:59→13:35)
[2016-04-22] MEDS: InsuLIN REG 1unit/0.01ml Soln (100units/ml) SC SCH ×4 (06:00→17:43)
[2016-04-22] MEDS: metroNIDAZOLE 500 MG TAB PO SCH ×2 (06:00→13:35)
[2016-04-22] MEDS: ACCU-CHEK COMFORT CURVE STRIP VI SCH ×4 (06:00→17:30)
[2016-04-22 07:42] LABS: DEFINITIVE VIEW TRANSMISSION; Hematocrit 25.2 % (41.0-53.0); Hemoglobin 8.4 g/dL (13.5-17.5); Mean Corpuscular Hemoglobin 33.3 pg (28.0-32.0); Mean Corpuscular Hgb Conc. 33.5 g/dL (32.0-36.0); Mean Corpuscular Volume 99.4 fL (80.0-100.0); Mean Platelet Volume 8.9 fL (7.4-10.4); Platelet Count (auto) 230 10^3/uL (140-450); Red Cell Distribution Width 18.5 % (11.6-16.0); SUSPECT VIEW TRANSMISSION; White Blood Cell 9.5 10^3/uL (4.4-10.8)
[2016-04-22 07:44] LABS: BUN/Creatinine Ratio 7.9; Calcium 7.7 mg/dL (8.5-10.1); Potassium 3.9 mmol/L (3.5-5.1)
[2016-04-22 07:50] LABS: Metamyelocytes % 0; Myelocytes % 0; Promyelocytes % 0; Reactive Lymphocytes 0
[2016-04-22] MEDS ORDERED: EPOETIN ALFA 3,000 UNIT/1 ML VIAL IV ONE (08:00)
[2016-04-22] MEDS ORDERED: SODIUM CHL 0.9% 1000 ML BAG XX ONE (08:00)
[2016-04-22 08:23] LABS: Platelet Estimate Adequate; RBC Morphology Normal
[2016-04-22 09:00] VITALS: BP 148/70
[2016-04-22] MEDS: FAMOTIDINE (10MG/ML) 2ML VL IV SCH (09:56)
[2016-04-22] MEDS: HYDROcodone-ACET 7.5/325MG TAB PO PRN ×2 (09:56→17:26)
[2016-04-22] MEDS: PANTOPRAZOLE SODIUM 40 MG/10 ML VIAL IV SCH (09:56)
[2016-04-22] MEDS ORDERED: ONDANSETRON HCL 4 MG/2 ML VIAL IM ONE (10:45)
[2016-04-22 11:28] VITALS: BP 100/61
[2016-04-22] MEDS ORDERED: CATHFLO ACTIVASE (ALTEPLASE) 2 MG VIAL IV ONE (11:45)
[2016-04-22 13:11] VITALS: BP 91/65
[2016-04-22 17:00] VITALS: BP 142/87
== END 2016-04-22 21:20 | DRG 264 ==
LOC: EDBD 10:02 → ER 10:02 → OR 1 10:03 → ICU WEST 10:04 → DOU IN ICU 04-12 16:54 → TELE-WESTW 04-16 13:35
PROVIDERS: ADMIT Surgery; ATTEND Family Medicine
PROC: 5A1945Z Respiratory Ventilation, 24-96 Consecutive Hours (ICD-10-PCS; 2016-04-08)
PROC: 0BH17EZ Insertion of Endotracheal Airway into Trachea, Via Natural or Artificial Opening (ICD-10-PCS; 2016-04-08)
PROC: 03PY0JZ Removal of Synthetic Substitute from Upper Artery, Open Approach (ICD-10-PCS; principal; 2016-04-08 11:16)
PROC: 02HV33Z Insertion of Infusion Device into Superior Vena Cava, Percutaneous Approach (ICD-10-PCS; 2016-04-09)
PROC: 5A1D60Z (ICD-10-PCS; 2016-04-09)
DX: T82.838A Hemorrhage due to vascular prosthetic devices, implants and grafts, initial encounter (principal); J96.00 Acute respiratory failure, unspecified whether with hypoxia or hypercapnia; N18.6 End stage renal disease; G93.41 Metabolic encephalopathy; I31.3 Pericardial effusion (noninflammatory); I13.2 Hypertensive heart and chronic kidney disease with heart failure and with stage 5 chronic kidney disease, or end stage renal disease; E87.0 Hyperosmolality and hypernatremia; D62 Acute posthemorrhagic anemia; D68.69 Other thrombophilia; I48.2 Chronic atrial fibrillation; E11.22 Type 2 diabetes mellitus with diabetic chronic kidney disease; E11.21 Type 2 diabetes mellitus with diabetic nephropathy; E87.5 Hyperkalemia; I07.1 Rheumatic tricuspid insufficiency; I27.2 Other secondary pulmonary hypertension; I34.0 Nonrheumatic mitral (valve) insufficiency; I50.9 Heart failure, unspecified; I67.2 Cerebral atherosclerosis; Y71.2 Prosthetic and other implants, materials and accessory cardiovascular devices associated with adverse incidents; Y84.1 Kidney dialysis as the cause of abnormal reaction of the patient, or of later complication, without mention of misadventure at the time of the procedure; Z53.1 Procedure and treatment not carried out because of patient's decision for reasons of belief and group pressure; D63.8 Anemia in other chronic diseases classified elsewhere; G89.29 Other chronic pain; Z86.73 Personal history of transient ischemic attack (TIA), and cerebral infarction without residual deficits; Z99.2 Dependence on renal dialysis; Z79.899 Other long term (current) drug therapy
CPT/HCPCS: 36415; 36600; 70450; 71010; 71020; 80048; 80053; 80061; 82040; 82306; 82607; 82728; 82746; 82805; 82962; 83540; 83550; 83735; 83970; 84100; 84439; 84443; 84478; 84484; 85007; 85014; 85018; 85025; 85027; 85610; 85730; 86850; 86900; 86901; 87070; 87075; 87081; 87205; 87493; 90935; 92610; 93005; 93306; 94002; 94003; 94640; 95819; 97110; 97116; 97530; A4565; C9113; J0690; J0885; J1100; J1642; J1815; J2250; J2405; J2704; J3010; J3430; J3490; Q4081